=== PATIENT | male | born 1970 | race Caucasian/White ===

== ENCOUNTER 2020-07-09 20:17 | Inpatient (IN) | payer OTHER ==
[~2020-07-09] VITALS: Ht 177.8 cm; Wt 92.2 kg
--- NOTE | 2020-07-09 20:22 | NUR ---
[id number] FROM HOME C/O SOB WITH EXERTION X1 MONTH. ALSO C/O BLE +2 SWELLING. PT AAOX4 VSS BREATHING EVENLY AND UNLABORED. PT DENIED HX OF CARDIAC OR RENAL DIAGNOSIS. PT CONNECTED TO METAL PLATER AND POX. CALL LIGHT WITHIN REACH. WILL CONTINUE TO MONITOR
--- NOTE | 2020-07-09 20:49 | NUR ---
BLOOD DRAWN AND SENT TO LAB
[2020-07-09 20:51] LABS: BASOPHILS % (AUTO) 0.6 % (0.0-2.0); EOSINOPHILS % (AUTO) 2.1 % (0.0-6.0); HEMATOCRIT 44 % (39-51); HEMOGLOBIN 14.5 g/dL (13.5-17.5); LYMPHOCYTES # (AUTO) 1.8 /CMM (0.8-4.8); LYMPHOCYTES % (AUTO) 25.8 % (20.0-44.0); MEAN CORPUSCULAR HGB CONC 33 g/dl (31.0-36.0); MEAN CORPUSCULAR VOLUME 91 fL (80-96); MONOCYTES # (AUTO) 0.7 /CMM (0.1-1.30); MONOCYTES % (AUTO) 9.9 % (2.0-12.0); NEUTROPHILS # (AUTO) 4.4 /CMM (1.8-8.9); NEUTROPHILS % (AUTO) 61.6 % (43.0-81.0); PLATELET COUNT (AUTO) 266 /CMM (150-450); RED BLOOD CELL COUNT(AUTO) 4.81 MIL/uL (4.5-6.0); WHITE BLOOD COUNT (AUTO) 7.1 K/uL (4.3-11.0)
[2020-07-09] MEDS ORDERED: IOHEXOL-350 100 ML VIAL IV ONE (20:58)
[2020-07-09] MEDS ORDERED: IV NS 0.9% 250 ML IV ONE (20:58)
[2020-07-09] MEDS ORDERED: CT SWABBABLE VALVE TRANS SET 1 EA INFUS.SET MC ONE (20:58)
--- NOTE | 2020-07-09 21:00 | NUR ---
US TECH AT BED SIDE
[2020-07-09 21:03] LABS: CALCIUM, SERUM 8.3 mg/dL (8.5-10.1); CREATININE 1.3 mg/dL (0.6-1.3); POTASSIUM 4.1 mmol/L (3.5-5.1)
--- NOTE | 2020-07-09 22:28 | NUR ---
CALLED [facility], PAGED SOFIE DIALLO
[2020-07-09] MEDS ORDERED: ASPIRIN 325 MG TABLET PO ONE (22:30)
[2020-07-09] MEDS ORDERED: FUROSEMIDE 40 MG/4 ML VIAL IV ONE (22:30)
--- NOTE | 2020-07-09 22:32 | NUR ---
YOEL SPEAKING WITH STEPHANIE
[2020-07-09] MEDS ORDERED: ASPIRIN 325 MG TABLET ONE (22:41)
[2020-07-09] MEDS ORDERED: FUROSEMIDE 40 MG/4 ML VIAL ONE (22:41)
[2020-07-09] MEDS ORDERED: ENOXAPARIN SODIUM 40 MG/0.4 ML DISP.SYRIN SQ SCH (23:00)
[2020-07-09 23:19] LABS: C-REACTIVE PROTEIN 0.6 mg/dL (0.0-0.9)
--- NOTE | 2020-07-09 23:23 | NUR ---
CALLED AFTER HOUR PHARMACY TO VERIFY THE ADMITTING ORDERS
--- NOTE | 2020-07-10 00:09 | NUR ---
REPORT GIVEN TO BORIS ON THIRD FLOOR
[2020-07-10 00:20] VITALS: BP 122/92
--- NOTE | 2020-07-10 00:20 | NUR ---
TELE/RN ADMITTING NOTES: RECEIVED REPORT FROM ER NURSE WYATT. PT ARRIVED TO THE UNIT VIA GURNEY, IN STABLE CONDITION UNDER ACLS PROTOCOL. A/OX4 VERBALLY RESPONSIVE AND ABLE TO MAKE NEEDS KNOWN. NO SOB NOTED. ON 2L OXYGEN VIA NC SATURATING ABOVE 96%. NO C/O PAIN AT THIS TIME. NO S/S OF DISTRESS. BREATHING EVEN AND UNLABORED. SKIN ASSESSED; WARM, DRY AND INTACT. IV ON THE RIGHT AC #20G, INTACT AND PATENT, FLUSHING WELL. BELONGINGS LIST CHECKED. INITIAL VSS. ORIENTED TO UNIT AND STAFF. CALL LIGHT WITHIN REACH. PT AMBULATORY WITH STEADY GAIT. BLE SHOWS MILD SWELLING. PER PT "IT'S GOTTEN A LOT BETTER THAN WHEN I FIRST WALKED IN THE ER.". SAFETY MEASURES SET IN PLACE. BED IN LOW, LOCKED POSITION WITH SR UPX2. WILL CONTINUE TO MONITOR.
--- NOTE | 2020-07-10 00:23 | NUR ---
pt was transferred to bed 315-2 under acls
--- NOTE | 2020-07-10 00:25 | NUR ---
TELE/RN NOTES: PT CONNECTED TO TELE MONITOR. READING OF SR HR 89 WITH OCCASIONAL PVC. STABLE. DENIES CHEST PAIN. WILL CONTINUE TO MONITOR.
[2020-07-10 04:00] VITALS: BP 127/82
--- NOTE | 2020-07-10 07:45 | NUR ---
TELE/RN CLOSING NOTES: PT REMAINS STABLE. ON 2L OXYGEN VIA NC, SATURATING WELL. NO SOB, NO S/S OF DISTRESS. NO C/O PAIN AT THIS TIME. IV REMAINS INTACT. SAFETY MEASURES KEPT IN PLACE. BED IN LOW, LOCKED POSITION WITH SR X2 UP. ALL NURSING NEEDS MET AND RENDERED. ENDORSED TO DAY SHIFT FOR ANABELLA.
[2020-07-10 08:00] VITALS: BP 114/78
--- NOTE | 2020-07-10 08:00 | NUR ---
RN OPENING NOTE PATIENT RECEIVED IN BED. ALERT, CONSCIOUS, ORIENTED X4. WITH IV ON RIGHT ARM #20G. NO SIGNS OF SOB. PLAN FOR COMPUTED TOMOGRAPHY. CONSENT WAS SIGNED. CALL LIGHT WITHIN REACH.
[2020-07-10 08:34] LABS: BASOPHILS % (AUTO) 0.5 % (0.0-2.0); EOSINOPHILS % (AUTO) 3.1 % (0.0-6.0); HEMATOCRIT 46 % (39-51); HEMOGLOBIN 15.2 g/dL (13.5-17.5); LYMPHOCYTES # (AUTO) 2.2 /CMM (0.8-4.8); LYMPHOCYTES % (AUTO) 30.5 % (20.0-44.0); MEAN CORPUSCULAR HGB CONC 33 g/dl (31.0-36.0); MEAN CORPUSCULAR VOLUME 91 fL (80-96); MONOCYTES # (AUTO) 0.9 /CMM (0.1-1.30); MONOCYTES % (AUTO) 11.9 % (2.0-12.0); NEUTROPHILS # (AUTO) 3.9 /CMM (1.8-8.9); PLATELET COUNT (AUTO) 267 /CMM (150-450); RED BLOOD CELL COUNT(AUTO) 5.04 MIL/uL (4.5-6.0); WHITE BLOOD COUNT (AUTO) 7.2 K/uL (4.3-11.0)
[2020-07-10 08:36] LABS: CARBON DIOXIDE 26 mmol/L (21-32); CHLORIDE 101 mmol/L (98-107); CREATININE 1.3 mg/dL (0.6-1.3); GLUCOSE 120 mg/dL (74-106); POTASSIUM 3.9 mmol/L (3.5-5.1); SODIUM SERUM 137 mmol/L (136-145); UREA NITROGEN, BLOOD 19 mg/dL (7-18)
[2020-07-10 08:42] LABS: ALANINE AMINOTRANSFERASE 28 U/L (12-78); ALBUMIN 3.1 g/dL (3.4-5.0); ALKALINE PHOSPHATASE 94 U/L (46-116); ASPARTATE AMINOTRANSFERASE 20 U/L (15-37); BILIRUBIN,TOTAL 0.4 mg/dL (0.2-1.0); MAGNESIUM 1.9 mg/dL (1.8-2.4); PHOSPHORUS 3.7 mg/dL (2.5-4.9); TOTAL PROTEIN, SERUM 6.5 g/dL (6.4-8.2)
[2020-07-10] MEDS: FUROSEMIDE 40 MG/4 ML VIAL IV SCH ×2 (08:47→16:26)
[2020-07-10 08:49] LABS: CHOLESTEROL 153 mg/dL (<200); HDL CHOLESTEROL 48 mg/dL (40-60); LDL 87 mg/dL (0-99); THYROID STIMULATING HORMONE 2.078 uIU/mL (0.358-3.74); TRIGLYCERIDES 150 mg/dL (30-150)
[2020-07-10] MEDS ORDERED: ASPIRIN 81 MG TAB.CHEW PO SCH (09:00)
[2020-07-10] MEDS ORDERED: ATORVASTATIN 10 MG TABLET PO SCH (09:00)
--- NOTE | 2020-07-10 09:22 | NUR ---
TELE/RN NOTES PATIENT WAS TAKEN DOWN FOR CT ANGIO. WITH IV PATENT.
[2020-07-10] MEDS ORDERED: IOHEXOL-350 100 ML VIAL IV ONE (09:26)
[2020-07-10] MEDS ORDERED: IV NS 0.9% 500 ML IV ONE (09:26)
[2020-07-10] MEDS ORDERED: METOPROLOL TARTRATE INJ 5 MG/5 ML AMPUL ONE (09:40)
[2020-07-10] MEDS ORDERED: METOPROLOL TARTRATE INJ 5 MG/5 ML AMPUL IVP ONE (09:40)
[2020-07-10] MEDS: METOPROLOL TARTRATE INJ 5 MG/5 ML AMPUL IVP PRN ×3 (09:45→09:55)
[2020-07-10] MEDS ORDERED: IV NS 0.9% 500 ML IV PRN ×3 (10:30→12:45)
[2020-07-10] MEDS ORDERED: NITROGLYCERIN 0.4 MG/TAB BOTTLE SL ONE ×2 (10:30)
--- NOTE | 2020-07-10 10:36 | NUR ---
metoprolol 5mg/5ml ivp once daily and nitroglycerin sl 0.4mg once daily canceled due double order.
--- NOTE | 2020-07-10 11:00 | NUR ---
TELE/RN NOTES PATIENT WAS BACK FROM THE PROCEDURE
[2020-07-10 12:09] LABS: MAGNESIUM 1.9 mg/dL (1.8-2.4); PHOSPHORUS 4.1 mg/dL (2.5-4.9)
[2020-07-10] MEDS: METOPROLOL TARTRATE 50 MG TABLET PO SCH ×2 (13:17→17:24)
[2020-07-10 13:27] LABS: ALBUMIN 3.4 g/dL (3.4-5.0); BILIRUBIN,TOTAL 0.4 mg/dL (0.2-1.0); CALCIUM, SERUM 8.3 mg/dL (8.5-10.1); CREATININE 1.3 mg/dL (0.6-1.3); POTASSIUM 4.4 mmol/L (3.5-5.1); TOTAL PROTEIN, SERUM 6.6 g/dL (6.4-8.2)
[2020-07-10 16:00] VITALS: BP 104/66
[2020-07-10] MEDS ORDERED: SILDENAFIL CITRATE 20 MG TABLET ONE (16:25)
[2020-07-10] MEDS ORDERED: SILDENAFIL CITRATE 20 MG TABLET PO SCH (17:00)
--- NOTE | 2020-07-10 17:17 | NUR ---
MS/RN - SILDAFENIL 20 MG GIVEN AT 16:26 Addendum: 07/10/20 at 1900 by ZEKE ELLISON RN CORRECTION TO ABOVE NOTE SILDENAFIL
[2020-07-10 17:24] VITALS: BP 104/66
--- NOTE | 2020-07-10 18:40 | NUR ---
RN CLOSING NOTES PATIENT RESTING IN BED COMFORTABLY, A/O X4. VERY COOPERATIVE AND ABLE TO MAKE NEEDS KNOWN. IV PATENT RIGHT AC #20 G. NO SOB, NO DISTRESS NOTED. BREATHING EVEN AND UNLABORED. SIDE RAILS UP X2. WILL ENDORSE TO ONCOMING SHIFT.
--- NOTE | 2020-07-10 20:03 | NUR ---
RN CLOSING NOTES PATIENT RESTING IN BED COMFORTABLY, AWAKE ALERT. CALM COOPERATIVE AT HIS TIME, AND ABLE TO MAKE NEEDS KNOWN. IV PATENT RIGHT AC #20 G. NO SOB, NO DISTRESS NOTED. BREATHING EVEN AND UNLABORED. SIDE RAILS UP X2. WILL CONTINUTIY WITH CARE.
--- NOTE | 2020-07-10 20:30 | NUR ---
RN NOTES : AROUND AT 2014 INFORMED BY Rolando PT. WAS NOT IN THE ROOM ,PRIMARY NURSE WENT TO CHECK THERE , PT. WAS NOT IN THE ROOM , CHARGE ROBERTO ,SUPERVISIOR, SECURITY, PIERCER SOFIE DIALLO MADE AWARE . CONTACT NUMBER ON FACE SHEET UNATTENDED # [phone], INCIDENT REPORT DONS ID # [id number]. Addendum: 07/10/20 at 2225 by NARESH FLYNN RN RN NOTES : AROUND AT 2014 INFORMED BY NANCY PT. WAS NOT IN THE ROOM ,PRIMARY NURSE WENT TO CHECK THERE , PT. WAS NOT IN THE ROOM , CHARGE ROBERTO ,SUPERVISIOR, SECURITY, PIERCER SOFIE DIALLO MADE AWARE . CONTACT NUMBER ON FACE SHEET UNATTENDED # [phone], INCIDENT REPORT DONS ID # [id number].
[2020-07-10] MEDS ORDERED: ENOXAPARIN SODIUM 40 MG/0.4 ML DISP.SYRIN SQ SCH (21:00)
[2020-07-11] MEDS ORDERED: SILDENAFIL CITRATE 20 MG TABLET PO SCH ×2 (09:00)
== END 2020-07-10 20:30 | disposition left against medical advice (07) | DRG 194 ==
LOC: ER 20:22 → TELE 23:40 → MED 07-10 13:53
PROVIDERS: ADMIT Registered Nurse; ATTEND Nurse Practitioner Acute Care
DX: I50.31 Acute diastolic (congestive) heart failure (principal); F15.10 Other stimulant abuse, uncomplicated; E66.9 Obesity, unspecified; Z68.30 Body mass index [BMI] 30.0-30.9, adult; E78.5 Hyperlipidemia, unspecified; R94.31 Abnormal electrocardiogram [ECG] [EKG]; I27.29 Other secondary pulmonary hypertension; I27.81 Cor pulmonale (chronic); Z20.828 Contact with and (suspected) exposure to other viral communicable diseases
CPT/HCPCS: 36415; 71045-TC; 75574; 80048-TC; 80053-TC; 80061-TC; 82550-TC; 82728-TC; 83615-TC; 83735-TC; 83880; 84100-TC; 84439-TC; 84443-TC; 84484-TC; 85025-TC; 85378-TC; 86140-TC; 87081-TC; 93307-TC; 93971-TC; C9803; G0378; J1650; J1940; J3490; J7040; J7050; Q9967